=== PATIENT | male | born 1990 | race Caucasian/White ===

== ENCOUNTER 2024-05-04 17:40 | Emergency (ER) | payer SELFPAY ==
[~2024-05-04] VITALS: Ht 165.1 cm; Wt 81.6 kg
[~2024-05-04 17:40] MED LIST: CIPROFLOXACIN500 MG PO; FLOMAX0.4 MG PO; PEN-VEE K500 MG PO
[2024-05-04] MEDS ORDERED: Tetracaine Hydrochloride 0.5% 4 ML BOT OPH ONE (18:00)
[2024-05-04] MEDS ORDERED: FLUORESCEIN SODIUM 1 MG STRIP OPH ONE (18:05)
[2024-05-04] MEDS ORDERED: OFLOXACIN 10 ML10 M2 OS (18:18)
[2024-05-04] MEDS ORDERED: OFLOXACIN 0.3% 5 ML BOTTLE OPH ONE (18:20)
== END 2024-05-04 18:44 | disposition home or self-care (01) ==
LOC: ED 17:40
DX: T15.02XA Foreign body in cornea, left eye, initial encounter (principal); Z88.8 Allergy status to other drugs, medicaments and biological substances; Z98.890 Other specified postprocedural states; X58.XXXA Exposure to other specified factors, initial encounter; Y93.89 Activity, other specified; Y92.89 Other specified places as the place of occurrence of the external cause; Y99.8 Other external cause status

== ENCOUNTER 2024-07-01 17:16 | Emergency (ER) | payer OTHER ==
[~2024-07-01] VITALS: Ht 165.1 cm; Wt 81.6 kg
[~2024-07-01 17:16] MED LIST changes: +OFLOXACIN 10 ML10 M2 OS
[2024-07-01] MEDS ORDERED: AMOX-CLAV 875-1 EACH PO (19:49)
[2024-07-01] MEDS ORDERED: Amoxicillin/Clavulanate Pota 875 MG TAB PO ONE (19:50)
== END 2024-07-01 20:08 | disposition home or self-care (01) ==
LOC: ED 17:16
DX: H66.93 Otitis media, unspecified, bilateral (principal); Z20.822 Contact with and (suspected) exposure to COVID-19; Z88.8 Allergy status to other drugs, medicaments and biological substances; Z98.890 Other specified postprocedural states